=== PATIENT | female | born 1995 | race Caucasian/White ===

== ENCOUNTER → 2017-01-31 12:29 | Emergency (ER) | payer SELFPAY ==
[~2017-01-31 12:29] MED LIST: PPD test dose* 5 TU/0.1 ML TEST (*USE PPD ORDER SET*) ONE
== END | disposition home or self-care (01) ==
LOC: OHCORT 12:29
DX: Z11.1 Encounter for screening for respiratory tuberculosis (principal)

== ENCOUNTER 2017-11-22 17:56 | Emergency (ER) | payer BC ==
[2017-11-22 18:27] VITALS: BP 117/65
--- NOTE | 2017-11-22 18:50 | UC ---
Lower Extremity/Ankle HPI - HPI Summary HPI Summary: This patient is a 21 year old F presenting to [facility] [place] with a chief complaint of a stabbing R foot pain since 06:20 today. The patient rates the pain 2/10 in severity earlier and 0/10 in severity currently. Patient reports mild swelling in R foot and difficulty ambulating. Earlier today, she could not put full pressure on her foot. - History of Current Complaint Chief Complaint: UCLowerExtremity Stated Complaint: R FOOT PAIN Time Seen by Provider: 11/22/17 18:40 Hx Obtained From: Patient Hx Last Menstrual Period: one week ago Onset/Duration: Sudden Onset - 06:20, Resolved Severity Initially: Moderate Severity Currently: None Pain Intensity: 0 Pain Scale Used: 0-10 Numeric Aggravating Factor(s): Ambulation - At the time, but not currently Able to Bear Weight: Yes - Yes currently. Difficulty ambulating earlier today. - Allergies/Home Medications Allergies/Adverse Reactions: Allergies Allergy/AdvReac Type Severity Reaction Status Date / Time azithromycin Allergy Hives Verified 11/22/17 18:28 Penicillins Allergy Hives Verified 11/22/17 18:28 Home Medications: Home Medications NK [No Home Medications Reported] 11/22/17 [History Confirmed 11/22/17] PMH/Surg Hx/FS Hx/Imm Hx Endocrine History: Diabetes - Denies Cardiovascular History: Cardiac Disease - Denies - Surgical History Surgical History: Yes Surgery Procedure, Year, and Place: left foot - Family History Known Family History: Positive: Hypertension, Diabetes - Social History Occupation: Employed Full-time Alcohol Use: Occasionally Substance Use Type: None Smoking Status (MU): Never Smoked Tobacco Review of Systems Constitutional: Fever - Denies Musculoskeletal: Other: - Sharp pain and mild swelling in R foot that has since resolved All Other Systems Reviewed And Are Negative: Yes Physical Exam - Summary Physical Exam Summary: VITAL SIGNS: Reviewed. GENERAL: Patient is a well-developed and nourished FEMALE who is lying comfortable in the stretcher. Patient is not in any acute respiratory distress. HEAD AND FACE: Normocephalic EYES: PERRLA, EOMI x 2. EARS: Hearing grossly intact. MOUTH: Oropharynx within normal limits. NECK: Supple, trachea is midline, no adenopathy, no JVD, no carotid bruit. CHEST: Symmetric, no tenderness at palpation LUNGS: Clear to auscultation bilaterally. No wheezing or crackles. CVS: Regular rate and rhythm, S1 and S2 present, no murmurs or gallops appreciated. ABDOMEN: Soft, non-tender. Bowel sounds are normal. No abdominal abnormal pulsations. EXTREMITIES: Full ROM in all major joints, no edema, no cyanosis or clubbing. NEURO: Alert and oriented x 3. No acute neurological deficits. Speech is normal and follows commands. SKIN: Dry and warm Triage Information Reviewed: Yes Vital Signs: Initial Vital Signs Temp 98.3 F 11/22/17 18:24 Pulse 73 11/22/17 18:24 Resp 12 11/22/17 18:24 BP 117/65 11/22/17 18:24 Pulse Ox 100 11/22/17 18:24 Vital Signs Reviewed: Yes Lower Extremity Course/Dx - Course Course Of Treatment: Patient is a 21-year-old female who presents to the urgent care with a chief complaint of right foot pain. However she reports that he is allergic to the urgent care or her symptoms resolved. The patient is able to ambulate with no pain, does note erythema, there is no swelling, there is no deformity. Therefore the patient was to be discharged. She was recommended to return to the urgent care or follow up with the primary care physician if the symptoms return. She understands and agrees. - Differential Dx/Diagnosis Provider Diagnoses: Foot pain Discharge - Sign-Out/Discharge Documenting (check all that apply): Patient Departure - D/C All imaging exams completed and their final reports reviewed: No Studies - Discharge Plan Condition: Stable Disposition: HOME Patient Education Materials: Arthralgia (ED) Referrals: [facility] [place] [facility]IAN REFERRAL [Outside] No Primary Care Phys,NOPCP [Primary Care Provider] - Additional Instructions: Take Acetaminophen or ibuprofen for pain or fever Increase your fluid intake Return to the or go to the emergency department if symptoms worsen Follow-up with primary care physician in next 2-3 days - Billing Disposition and Condition Condition: STABLE Disposition: Home - Attestation Statements Document Initiated by Scribe: Yes Documenting Scribe: Jona Velazquez Provider For Whom Scribe is Documenting (Include Credential): Rio Glover MD Scribe Attestation: Jona Dumont scribed for Rio Glover MD on 11/22/17 at 2035. Scribe Documentation Reviewed: Yes Provider Attestation: The documentation as recorded by the scribeJona accurately reflects the service I personally performed and the decisions made by me, Rio Glover MD
== END 2017-11-22 19:00 | disposition home or self-care (01) ==
LOC: UCEAST 17:56
DX: M79.671 Pain in right foot (principal); Z88.0 Allergy status to penicillin; Z88.1 Allergy status to other antibiotic agents
CPT/HCPCS: 99211; G0463

== ENCOUNTER 2019-05-12 13:21 | Emergency (ER) | payer BC ==
[2019-05-12 15:01] VITALS: BP 133/62
--- NOTE | 2019-05-12 15:04 | UC ---
Throat Pain/Nasal Martin HPI - HPI Summary HPI Summary: 23 y/o female presents to the urgent care c/o Sinus congestion, pressure w/ yellowish nasal discharge,for over 10 days.. Now has chest congestion with yellow productive cough and moderate green PND. Symptoms started w/ sore throat and low grade fever. She has taken Mucinex PO w/o any improvment. Pt has a lot of B/L ear pressure and sinus pain and PATINO. Pt denies fever, SOB, dizziness, chest pain, abdominal pain, N/V/d. . - History of Current Complaint Chief Complaint: UCRespiratory Stated Complaint: SINUS,CONGESTION,EAR COMPLAINT Time Seen by Provider: 05/12/19 15:02 Hx Obtained From: Patient Hx Last Menstrual Period: one week ago ?: No Onset/Duration: Gradual Onset, Lasting Weeks - 1 week, Still Present, Worse Since - 2 days Severity: Moderate Pain Intensity: 5 - sinus pain Pain Scale Used: 0-10 Numeric Cough: Nonproductive Associated Signs & Symptoms: Positive: Sinus Discomfort, Nasal Discharge - green , Other - moderate green pND. Negative: Dysphagia, Wheezing, Fever Related History: Seasonal Allergies - Epiglottits Risk Factors Epiglottis Risk Factors: Negative - Allergies/Home Medications Allergies/Adverse Reactions: Allergies Allergy/AdvReac Type Severity Reaction Status Date / Time azithromycin Allergy Hives Verified 05/12/19 14:59 Penicillins Allergy Hives Verified 05/12/19 14:59 Home Medications: Home Medications guaiFENesin ER TAB [Mucinex*] 600 mg PO ONCE 05/12/19 [History Confirmed ] PMH/Surg Hx/FS Hx/Imm Hx Previously Healthy: Yes - Pt denies PMHX - Surgical History Surgical History: Yes Surgery Procedure, Year, and Place: left foot - Family History Known Family History: Positive: Cardiac Disease, Hypertension, Diabetes - Social History Occupation: Employed Full-time Lives: With Family Alcohol Use: Occasionally Substance Use Type: None Smoking Status (MU): Never Smoked Tobacco Review of Systems All Other Systems Reviewed And Are Negative: Yes Constitutional: Positive: Negative Skin: Positive: Negative Eyes: Positive: Negative ENT: Positive: Ear Ache - b/l ear pressure, Nasal Discharge - green, Sinus Congestion, Sinus Pain/Tenderness, Other - green PND Respiratory: Positive: Cough - productive cough w/ green sputum Cardiovascular: Positive: Negative Gastrointestinal: Positive: Negative Genitourinary: Positive: Negative Motor: Positive: Negative Neurovascular: Positive: Negative Musculoskeletal: Positive: Negative Neurological/Mental Status: Positive: Headache Psychological: Positive: Negative Is Patient Immunocompromised?: No Physical Exam - Summary Physical Exam Summary: Vitals: reviewed General: Well developed, well-nourished female patient with NAD. Head and face: Normocephalic and atraumatic, Positive tenderness over the frontal and maxillary sinuses.. Eyes: PERRLA, EOMI x 2. Normal conjunctiva. No eye discharge. ENT: Ears and TM with normal limits. Nose: edematous and erythematous nasal mucosa with yellowish discharge and erythematous mucosa. Pharynx with erythema, no exudate. Green PND Neck: Supple, no JVD, no carotid bruits and no lymphadenopathy. Lungs: clear, no rales, no rhonchi, no wheezes. CVS: RRR, S1 and S2 present no murmurs or gallops appreciated. Abdomen: soft nontender with positive bowel sounds. Extremities: no edema noted. Neuro: WNL. Skin: warm and dry Triage Information Reviewed: Yes Vital Signs: Initial Vital Signs Temp 98.5 F 05/12/19 14:58 Pulse 62 05/12/19 14:58 Resp 16 05/12/19 14:58 BP 133/62 05/12/19 14:58 Pulse Ox 100 05/12/19 14:58 Throat Pain/Nasal Course/Dx - Course Course Of Treatment: 23 y/o female presents to the urgent care c/o Sinus congestion, pressure w/ yellowish nasal discharge,for over 10 days.. Now has chest congestion with yellow productive cough and moderate green PND. Symptoms started w/ sore throat and low grade fever. She has taken Mucinex PO w/o any improvement. Pt has a lot of B/L ear pressure and sinus pain and PATINO. Pt denies fever, SOB, dizziness, chest pain, abdominal pain, N/V/d. Hx obtained. Pt w/ acute bacterils sinusitis and B/L external ear canal impacted w/ cerumen. Pt declined ear irrigation. Pt with 10 days symptoms getting worse. Pt Rx Amoxicillin PO and Flonase nasal spray. Debrox otic drops to soften her cerumen. Discharge instructions explained to Pt. Advised to Return to the clinic or PCP if symptoms do not improve.Pt understood and agreed with plan of care. - Differential Dx/Diagnosis Differential Diagnosis/HQI/PQRI: Influenza, Laryngitis, Mononucleosis, Pharyngitis, Sinusitis, Tonsillitis, URI Provider Diagnosis: Acute bacterial sinusitis, Bilateral impacted cerumen Discharge ED - Sign-Out/Discharge Documenting (check all that apply): Patient Departure - D/C home All imaging exams completed and their final reports reviewed: No Studies - Discharge Plan Condition: Stable Disposition: HOME Prescriptions: Carbamide Peroxide 6.5% OTIC* [DEBROX 6.5% Otic*] 5 drop BOTH EARS BID #1 bottle DOXYcycline CAP(*) [DOXYcycline 100MG CAP(*)] 100 mg PO BID #20 cap Fluticasone NASAL SPRAY 50MCG* [Flonase NASAL SPRAY 50MCG*] 2 spray BOTH NARES DAILY #1 btl Patient Education Materials: Sinusitis (ED) Referrals: [facility] [place] [facility] REFERRAL [Outside] - 3 Days Additional Instructions: 1- Please increase fluid intake and rest. take full course of antibiotics to avoid resistance. Take yogurts w/ probiotics or Culturelle to protect your GI system 2-Use Flonase as directed to help drain fluid. Also buy saline drops to clear sinuses 3- Please use Debrox otic drops on both ears to soften cerumen in both ears. 4-Please f/u w/ your PCP in 3 days if symptoms do not improve for further management and treatment - Billing Disposition and Condition Condition: STABLE Disposition: Home
== END 2019-05-12 15:38 | disposition home or self-care (01) ==
LOC: UCCORT 13:21
DX: J01.90 Acute sinusitis, unspecified (principal); B96.89 Other specified bacterial agents as the cause of diseases classified elsewhere; H61.23 Impacted cerumen, bilateral; Z88.0 Allergy status to penicillin; Z88.1 Allergy status to other antibiotic agents
CPT/HCPCS: 99212; G0463